=== PATIENT | female | born 1995 | race Two or more races ===

== ENCOUNTER 2017-02-14 11:54 | Emergency (ER) | payer MEDICAID ==
[~2017-02-14] VITALS: Ht 172.7 cm; Wt 72.6 kg
[2017-02-14 12:14] VITALS: BP 138/94
== END 2017-02-14 16:14 | disposition left against medical advice (07) ==
LOC: ER 11:55
DX: M79.89 Other specified soft tissue disorders (principal)

== ENCOUNTER 2017-04-21 03:34 | Emergency (ER) | payer MEDICAID ==
[~2017-04-21] VITALS: Ht 172.7 cm; Wt 68.0 kg
[2017-04-21 04:24] LABS: Basophils # (auto) 0.1 uL; Basophils % (auto) 0.9 % (0.0-2.0); CONDITION Y; Eosinophils # (auto) 0.5 uL; Eosinophils % (auto) 3.6 % (0.0-7.0); Hematocrit 42.9 % (36.0-46.0); Lymphocytes % (auto) 15.3 % (10.0-50.0); Mean Corpuscular Hemoglobin 29.5 pg (28.0-32.0); Mean Corpuscular Hgb Conc. 32.5 g/dL (32.0-36.0); Mean Corpuscular Volume 90.5 fL (80.0-100.0); Mean Platelet Volume 10.4 fL (7.4-10.4); Monocytes # (auto) 0.9 uL; Monocytes % (auto) 7.3 % (0.0-12.0); Neutrophils # (auto) 9.3 uL; Neutrophils % (auto) 72.9 % (37.0-80.0); Platelet Count (auto) 240 10^3/uL (140-450); Red Cell Distribution Width 13.7 % (11.6-16.0); White Blood Cell 12.8 10^3/uL (4.4-10.8)
[2017-04-21 04:42] LABS: INR 0.95 (0.9-1.15); Partial Thromboplastin Time 29.2 sec (22.64-33.71); Prothrombin Time 10.4 sec (9.37-12.3)
[2017-04-21 04:48] LABS: Urine Bilirubin Negative (Negative); Urine Blood Negative /uL (Negative); Urine Color Yellow (Yellow); Urine Glucose Normal (Normal); Urine Ketone Negative (Negative); Urine Mucus FEW (None Seen); Urine Nitrite Negative (Negative); Urine RBC 1 /hpf (0 - 4); Urine Squamous Epithelial Cell FEW /hpf (<5); Urine Urobilinogen Normal (Negative); Urine pH 5.5 (5.0-8.0)
[2017-04-21 04:49] LABS: Albumin 3.5 g/dL (3.4-5.0); BUN/Creatinine Ratio 8.5; Bilirubin, Total 0.2 mg/dL (0.2-1.0); Calcium 8.5 mg/dL (8.5-10.1); Potassium 3.9 mmol/L (3.5-5.1); Total Protein 7.6 g/dL (6.4-8.2)
[2017-04-21] MEDS: cefTRIAXone SOD 1,000 MG VL IV ONE ×2 (05:15→05:48)
[2017-04-21] MEDS ORDERED: SODIUM CHLORIDE 0.9% 1,000 ML IV ONE (05:15)
[2017-04-21] MEDS ORDERED: ONDANSETRON HCL 4 MG/2 ML VIAL IV ONE (05:15)
[2017-04-21] MEDS ORDERED: cefTRIAXone 1GM/50ML D5W 50 ML IV ONE (05:31)
[2017-04-21 06:00] VITALS: BP 147/77
== END 2017-04-21 06:30 | disposition home or self-care (01) ==
LOC: ER 03:37
DX: N39.0 Urinary tract infection, site not specified (principal); K52.9 Noninfective gastroenteritis and colitis, unspecified
CPT/HCPCS: 36415; 80053; 81001; 81025; 82150; 83690; 85025; 85610; 85730; 96361; 96365; 96375; 99284; J0696; J2405; J7030